=== PATIENT | male | born 1990 ===

== ENCOUNTER 2025-05-03 07:45 | Day surgery (SDC) | payer OTHER ==
[2025-04-25 11:27] VITALS: BP 129/82
[~2025-05-03] VITALS: Ht 182.9 cm; Wt 77.1 kg
[2025-05-03] MEDS ORDERED: CEFAZOLIN SODIUM 1,000 MG VIAL ONE (10:30)
[2025-05-03] MEDS ORDERED: CEFAZOLIN SODIUM 1,000 MG VIAL IV SCH (15:45)
[2025-05-03] MEDS ORDERED: FAMOTIDINE/PF 20 MG/10 ML SYRINGE IV SCH (15:45)
[2025-05-03] MEDS ORDERED: MORPHINE SULFATE 4 MG/ML VIAL IV ONE ×2 (16:00→16:30)
== END 2025-05-03 19:10 | disposition home or self-care (01) ==
LOC: CIR.AMB 07:45
PROVIDERS: ATTEND Specialist
DX: K40.90 Unilateral inguinal hernia, without obstruction or gangrene, not specified as recurrent (principal)